=== PATIENT | male | born 1960 | race African-American/Black ===

== ENCOUNTER 2021-10-20 15:32 | Emergency (ER) | payer MEDICAID ==
[~2021-10-20] VITALS: Ht 177.8 cm; Wt 100.0 kg
[2021-10-20 15:42] VITALS: BP 151/85
[2021-10-20] MEDS ORDERED: TAMS-11 PO (15:48)
[2021-10-20] MEDS ORDERED: OMEP20TA15 PO (15:48)
[2021-10-20] MEDS ORDERED: IBUP-2029 MT (20:08)
[2021-10-20] MEDS ORDERED: CLIN-194 MT (20:08)
== END 2021-10-20 20:28 | disposition home or self-care (01) ==
LOC: ER 15:32
DX: K08.89 Other specified disorders of teeth and supporting structures (principal); Z98.890 Other specified postprocedural states
CPT/HCPCS: 99283